=== PATIENT | female | born 1990 | race African-American/Black ===

== ENCOUNTER 2022-01-24 16:26 | Outpatient (CLI) | payer SELFPAY | END 2022-01-24 16:27 | disposition home or self-care (01) | LOC: PC 16:26 | PROVIDERS: Visit Provider Preventive Medicine Occupational Medicine ==

== ENCOUNTER 2022-01-25 09:29 | Outpatient (CLI) | payer BC, SELFPAY ==
--- NOTE | 2022-02-07 13:22 | PDOC.PAIN ---
[facility] Procedure Note Procedure Note Procedure Note: this is a quick note to test the process for POC[facility]. An order has been placed and this is the report from the order and procedure done.
== END 2022-01-25 09:30 | disposition home or self-care (01) ==
LOC: PC 09:30
PROVIDERS: Visit Provider Preventive Medicine Occupational Medicine